=== PATIENT | female | born 1985 | race Caucasian/White ===

== ENCOUNTER 2016-10-15 06:00 | Inpatient (IN) | payer BC ==
[2016-10-15] VITALS (61 sets, daily range): BP systolic 98–146; BP diastolic 52–85
[~2016-10-15] VITALS: Ht 165.1 cm; Wt 80.9 kg
[~2016-10-15 06:00] MED LIST: FERR325C PO; PREN1TAB39 PO
[2016-10-15] MEDS ORDERED: D5 LR IV SOLUTION 1,000 ML IV ONE (06:20)
[2016-10-15] MEDS ORDERED: MINERAL OIL CONCENTRATE 99.9% 15 ML UDC TOP PRN (06:45)
[2016-10-15] MEDS ORDERED: VANCOMYCIN INJECTION 1,000 MG in NS (IVPB) 250 ML IV SCH (06:45)
[2016-10-15] MEDS: D5 LR IV SOLUTION 1,000 ML IV SCH ×2 (06:51→14:41)
[2016-10-15 07:09] LABS: BASOPHILS % (AUTO) 0 % (0-10); EOSINOPHILS # (AUTO) 0.2 10^3/uL (0.0-0.3); EOSINOPHILS % (AUTO) 2 % (0-10); LYMPHOCYTES # (AUTO) 2.3 X 10^3 (1.0-4.0); LYMPHOCYTES % (AUTO) 25 % (12-44); MEAN CORPUSCULAR HEMOGLOBIN 32 PG (25-34); MEAN CORPUSCULAR HGB CONC 34 G/DL (32-36); MEAN CORPUSCULAR VOLUME 94 FL (80-99); MEAN PLATELET VOLUME 12.7 FL (7.4-10.4); MONOCYTES # (AUTO) 0.8 X 10^3 (0.0-1.0); MONOCYTES % (AUTO) 9 % (0-12); NEUTROPHILS # (AUTO) 5.9 X 10^3 (1.8-7.8); NEUTROPHILS % (AUTO) 64 % (42-75); PLATELET COUNT 105 10^3/uL (130-400); RED BLOOD COUNT 3.43 10^6/uL (4.35-5.85); WHITE BLOOD COUNT 9.3 10^3/uL (4.3-11.0)
[2016-10-15] MEDS ORDERED: NS (IVPB) 250 ML ONE (07:22)
[2016-10-15] MEDS ORDERED: MISOPROSTOL 100 MCG (CYTOTEC) TAB PO ONE (07:30)
[2016-10-15 10:26] LABS: BILIRUBIN,URINE NEGATIVE (NEGATIVE); KETONES,URINE NEGATIVE (NEGATIVE); LEUKOCYTE ESTERASE ,URINE 3+ (NEGATIVE); NITRITE,URINE NEGATIVE (NEGATIVE); PH,URINE 7 (5-9); PROTEIN,URINE 1+ (NEGATIVE); UROBILINOGEN,URINE NORMAL (NORMAL)
[2016-10-15 10:50] LABS: WBC,URINE 50-100 /HPF
[2016-10-15] MEDS ORDERED: OXYTOCIN/NORMAL SALINE 500 ML IV SCH ×2 (12:17→16:25)
[2016-10-15] MEDS ORDERED: fentaNYL INJECTION 100 MCG/2 ML AMP IVP PRN (12:30)
[2016-10-15] MEDS ORDERED: PROMETHAZINE INJ 25 MG/ML (PHENERGAN) AMP IVP PRN (12:30)
[2016-10-15] MEDS ORDERED: SUFENTA 0.6MCG/ML BUPIVA 0.125 100 ML ONE (13:19)
[2016-10-15] MEDS ORDERED: CATHETER FLUSH 10 ML SYR IV SCH ×2 (14:00→22:00)
[2016-10-15] MEDS ORDERED: LACTATED RINGERS 1,000 ML IV SCH (14:16)
[2016-10-15] MEDS ORDERED: diphenhydrAMINE 50 MG/ML INJ (BENADRYL) IV PRN (14:30)
[2016-10-15] MEDS ORDERED: EPIDURAL (SUFENTA 0.6MCG/ML BUPIVA 0.125%) 100 ML BAG EPI SCH (14:30)
[2016-10-15] MEDS ORDERED: METOCLOPRAMIDE INJ 10 MG/2 ML (REGLAN) IV PRN (14:30)
[2016-10-15] MEDS ORDERED: NALOXONE 0.4 MG/ML 1 ML (NARCAN) VIAL IV PRN ×2 (14:30)
[2016-10-15] MEDS ORDERED: ONDANSETRON 4 MG/2 ML (SDV) Z0FRAN IV PRN (14:30)
[2016-10-15] MEDS ORDERED: LIDOCAINE PF 2% 10 ML (XYLOCAINE) AMP ONE (14:50)
[2016-10-15] MEDS ORDERED: BUPIVACAINE 0.25% 30 ML (SENSORCAINE) VIAL ONE (15:15)
[2016-10-15] MEDS ORDERED: LIDOCAINE/EPI 1%-1:200,000 (XYLOCAINE) 30 ML VIAL ONE (15:52)
[2016-10-15] MEDS ORDERED: DIBUCAINE (NUPERCAINAL) 1% OINT 30 GM TOP PRN (16:30)
[2016-10-15] MEDS ORDERED: WITCH HAZEL(TUCKS) 40 EA JAR TOP PRN (16:30)
[2016-10-15] MEDS ORDERED: TETANUS,DIPTH,PERTUSS P/F (BOOSTRIX) 0.5 ML VIAL IM ONE (16:30)
[2016-10-15] MEDS ORDERED: MEASLES,MUMPS,RUBELLA 1 EA INJ SQ ONE (16:30)
[2016-10-15] MEDS ORDERED: BENZOCAINE/MENTHOL (DERMOPLAST) 56 ML CAN TP PRN (16:30)
--- NOTE | 2016-10-15 16:30 | OB Labor & Delivery Record ---
Vag Delivery Note Vag Delivery Note Date of Delivery: 10/15/16 Preoperative Diagnosis: Shasta Faust is a 31 /Para 2 /1 ,Gestational Age 39 weeks with gestational thrombocytopenia, GBS+ Postoperative Diagnosis: Same Surgeon: CRICKET GREENE Anesthesia:epidural Delivery Type: Findings: [] Viable female infant, apgars 9/9, weight 7#8oz Lacerations: Intact placenta with 3 vessel cord. No nuchal cord, body cord or shoulder dystocia Estimated Blood Loss:200 ml Complications: None Condition: Stable Description of Procedure: The patient is a 31 /Para 2 /1 ,Gestational Age 39 weeks with gestational thrombocytopenia.. She was admitted and informed consent was obtained. Her labor course was remarkable for Vancomycin administration due to GBS +, PCN allergic and Clindamycin resistance. 4 hours after infusion, AROM and then pitocin. Epidural was placed. She progressed to complete dilatation and began to push. She was then set up for delivery. The infant's head was delivered atraumatically in the KYRA position. The shoulders and remainder of the infant's body were then delivered without difficulty. Upon delivery, the head was held below the level of the perineum and the mouth and nares were bulb suctioned. The cord was doubly clamped and cut after delayed cord clamping and the infant was handed off to the pediatric staff. An intact placenta with 3-vessel cord delivered via Reggie and there was found to be minimal bleeding.~ Vigorous fundal massage was performed and the fundus was found to be firm. IV oxytocin was given. Examination of the vagina and perineum revealed 1st degree laceration repaired in the usual fashion with 3-0 vicryl suture. Following the repair, sponge, instrument and needle counts were correct. Mom and baby were both in stable condition in the labor suite. Vitals - Labs Vital Signs - I&O Vital Signs Date Time Temp Pulse Resp B/P (MAP) Pulse Ox O2 Delivery O2 Flow Rate FiO2 10/15/16 09:00 62 18 98/55 Room Air 10/15/16 08:00 71 18 121/69 Room Air 10/15/16 07:36 99.4 90 18 123/62 Room Air 10/15/16 07:10 97.8 10/15/16 06:34 99 18 116/64 Room Air Labs Laboratory Tests 10/15/16 06:58: White Blood Count 9.3, Red Blood Count 3.43L, Hemoglobin 10.9L, Hematocrit 32L, Mean Corpuscular Volume 94, Mean Corpuscular Hemoglobin 32, Mean Corpuscular Hemoglobin Concent 34, Red Cell Distribution Width 13.0, Platelet Count 105L, Mean Platelet Volume 12.7H, Neutrophils (%) (Auto) 64, Lymphocytes (%) (Auto) 25 , Monocytes (%) (Auto) 9, Eosinophils (%) (Auto) 2, Basophils (%) (Auto) 0, Neutrophils # (Auto) 5.9, Lymphocytes # (Auto) 2.3, Monocytes # (Auto) 0.8, Eosinophils # (Auto) 0.2, Basophils # (Auto) 0.0 10/15/16 10:15: Urine Color YELLOW, Urine Clarity CLEAR, Urine pH 7, Urine Specific [place] 1.010L, Urine Protein 1+H, Urine Glucose (UA) NEGATIVE, Urine Ketones NEGATIVE, Urine Nitrite NEGATIVE, Urine Bilirubin NEGATIVE, Urine Urobilinogen NORMAL, Urine Leukocyte Esterase 3+H, Urine RBC (Auto) 5+H, Urine RBC 0-2, Urine WBC 50- 100H, Urine Squamous Epithelial Cells 10-25H, Urine Crystals NONE, Urine Bacteria MODERATEH, Urine Casts NONE, Urine Mucus NEGATIVE, Urine Culture Indicated YES CRICKET GREENE DO Oct 15, 2016 16:30
[2016-10-15] MEDS: IBUPROFEN 600 MG (MOTRIN) TAB PO SCH (18:12)
[2016-10-15] MEDS: DOCUSATE SODIUM 100 MG (COLACE) CAP PO SCH (20:28)
[2016-10-15] MEDS: HYDROcodone/APAP 5 MG/325 MG (LORTAB) TAB PO PRN (22:25)
[2016-10-15] MEDS ORDERED: FERR-74 PO (23:39)
[2016-10-15] MEDS ORDERED: HYDR-3812 PO (23:39)
[2016-10-15] MEDS ORDERED: IBUP-1773 PO (23:39)
--- NOTE | 2016-10-15 23:41 | Discharge Inst-Women's Service ---
Discharge Inst-Women's Serv Depart Medication/Instructions New, Converted or Re-Newed RX: RX on Chart Final Diagnosis gestational thrombocytopenia term vaginal delivery epidural Consults/Follow Up Additional Follow Up: Yes (6 weeks) Activity Activity: Activity as Tolerated Driving Instructions: You May Drive NO SMOKING: NO SMOKING Nothing Inside Vagina: No Douching, No [place], No Tampons Diet Discharge Diet: No Restrictions Symptoms to Report to : Swelling Increased, Bleeding Excessive, Pain Increased, Fever Over 101 Degrees F, Vaginal Bleeding Increase, Cramps in Feet or Legs, Vaginal Discharge Foul For Any Problems or Questions: Contact Your Physician CRICKET GREENE DO Oct 15, 2016 23:41
[2016-10-16 00:20] VITALS: BP 108/51
[2016-10-16] MEDS: HYDROcodone/APAP 5 MG/325 MG (LORTAB) TAB PO PRN (00:37)
[2016-10-16] MEDS: IBUPROFEN 600 MG (MOTRIN) TAB PO SCH ×4 (00:37→18:01)
[2016-10-16 05:00] VITALS: BP 110/72
[2016-10-16 07:11] LABS: BASOPHILS % (AUTO) 0 % (0-10); EOSINOPHILS # (AUTO) 0.1 10^3/uL (0.0-0.3); EOSINOPHILS % (AUTO) 1 % (0-10); LYMPHOCYTES % (AUTO) 26 % (12-44); MEAN CORPUSCULAR HEMOGLOBIN 32 PG (25-34); MEAN CORPUSCULAR HGB CONC 33 G/DL (32-36); MEAN CORPUSCULAR VOLUME 95 FL (80-99); MEAN PLATELET VOLUME 12.9 FL (7.4-10.4); MONOCYTES % (AUTO) 8 % (0-12); NEUTROPHILS # (AUTO) 7.7 X 10^3 (1.8-7.8); NEUTROPHILS % (AUTO) 65 % (42-75); PLATELET COUNT 97 10^3/uL (130-400); RED BLOOD COUNT 3.22 10^6/uL (4.35-5.85); RED CELL DISTRIBUTION WIDTH 13.3 % (10.0-14.5); WHITE BLOOD COUNT 11.7 10^3/uL (4.3-11.0)
[2016-10-16] MEDS: PRENATAL VITAMIN 1 EA TAB PO SCH (08:56)
[2016-10-16] MEDS: FERROUS SULF 325 MG (IRON) TAB PO SCH (08:56)
[2016-10-16] MEDS: DOCUSATE SODIUM 100 MG (COLACE) CAP PO SCH ×2 (08:57→21:15)
[2016-10-16 09:00] VITALS: BP 109/73
--- NOTE | 2016-10-16 09:04 | Postpartum Progress Note ---
Note Note Day # 1 s/p Subjective: Patient is without complaints. Ambulating, voiding. Tolerating a regular diet without nausea or vomiting. Normal lochia. Pain is well controlled with oral pain medications. breast feeding. Objective: Laboratory Tests Test 10/15/16 10:15 10/16/16 06:29 Range/Units Urine Color YELLOW Urine Clarity CLEAR Urine pH 7 5-9 Urine Specific [place] 1.010 L 1.016-1.022 Urine Protein 1+ H NEGATIVE Urine Glucose (UA) NEGATIVE NEGATIVE Urine Ketones NEGATIVE NEGATIVE Urine Nitrite NEGATIVE NEGATIVE Urine Bilirubin NEGATIVE NEGATIVE Urine Urobilinogen NORMAL NORMAL MG/DL Urine Leukocyte Esterase 3+ H NEGATIVE Urine RBC (Auto) 5+ H NEGATIVE Urine RBC 0-2 /HPF Urine WBC 50-100 H /HPF Urine Squamous Epithelial Cells 10-25 H /HPF Urine Crystals NONE /LPF Urine Bacteria MODERATE H /HPF Urine Casts NONE /LPF Urine Mucus NEGATIVE /LPF Urine Culture Indicated YES White Blood Count 11.7 H 4.3-11.0 10^3/uL Red Blood Count 3.22 L 4.35-5.85 10^6/uL Hemoglobin 10.2 L 11.5-16.0 G/DL Hematocrit 31 L 35-52 % Mean Corpuscular Volume 95 80-99 FL Mean Corpuscular Hemoglobin 32 25-34 PG Mean Corpuscular Hemoglobin Concent 33 32-36 G/DL Red Cell Distribution Width 13.3 10.0-14.5 % Platelet Count 97 L 130-400 10^3/uL Mean Platelet Volume 12.9 H 7.4-10.4 FL Neutrophils (%) (Auto) 65 42-75 % Lymphocytes (%) (Auto) 26 12-44 % Monocytes (%) (Auto) 8 0-12 % Eosinophils (%) (Auto) 1 0-10 % Basophils (%) (Auto) 0 0-10 % Neutrophils # (Auto) 7.7 1.8-7.8 X 10^3 Lymphocytes # (Auto) 3.0 1.0-4.0 X 10^3 Monocytes # (Auto) 1.0 0.0-1.0 X 10^3 Eosinophils # (Auto) 0.1 0.0-0.3 10^3/uL Basophils # (Auto) 0.0 0.0-0.1 10^3/uL Vital Sign - Last 12Hours 10/16/16 10/16/16 00:20 05:00 Temp 97.0 98.2 Pulse 55 74 Resp 19 18 B/P (MAP) 108/51 110/72 Pulse Ox 98 98 O2 Delivery Room Air Room Air Intake and Output 10/16/16 00:00 Intake Total 1700 ml Balance 1700 ml Physical Exam: General - Alert and oriented, no apparent distress Abdomen - Soft, appropriately tender to palpation, non-distended, fundus firm at umbilicus Extremities - no edema, negative Prince's bilaterally Assessment: 1. post- day # 1, status post spontaneous vaginal delivery. Recovering well, hemodynamically stable 2. Mild Acute blood loss anemia - stable, iron replaced 3. gestational thrombocytopenia. Plt count sl decrease. Will repeat in the am. No excess bleeding or petechiae Plan: Routine care. Encourage breast feeding. Encourage ambulation. Ferrous sulfate supplementation. Plan for discharge tomorrow Vitals - Labs Vital Signs - I&O Vital Signs Date Time Temp Pulse Resp B/P (MAP) Pulse Ox O2 Delivery O2 Flow Rate FiO2 10/16/16 05:00 98.2 74 18 110/72 98 Room Air 10/16/16 00:20 97.0 55 19 108/51 98 Room Air 10/15/16 20:20 96.8 68 18 113/67 95 Room Air 10/15/16 18:19 70 18 123/64 Room Air 10/15/16 17:29 99.4 65 18 123/58 Room Air 10/15/16 16:59 62 18 121/57 Room Air 10/15/16 16:44 62 18 126/60 Room Air 10/15/16 16:28 77 18 136/58 Room Air 10/15/16 16:22 87 18 121/66 Room Air 10/15/16 16:18 76 18 124/64 Room Air 10/15/16 16:16 65 18 114/58 Room Air 10/15/16 16:13 66 18 119/61 Room Air 10/15/16 16:03 77 18 123/59 Room Air 10/15/16 16:00 79 18 111/52 Room Air 10/15/16 15:50 77 18 109/59 Room Air 10/15/16 15:47 64 18 128/58 98 Room Air 10/15/16 15:40 62 18 121/68 99 Room Air 10/15/16 15:37 64 18 111/57 98 Room Air 10/15/16 15:34 67 18 119/56 Room Air 10/15/16 15:29 61 18 120/61 Room Air 10/15/16 15:27 65 18 98/56 99 Room Air 10/15/16 15:23 96 18 113/63 99 Room Air 10/15/16 15:20 77 18 146/60 Room Air 10/15/16 15:17 78 18 134/71 98 Room Air 10/15/16 15:14 75 18 121/62 Room Air 10/15/16 15:12 71 18 135/63 99 Room Air 10/15/16 15:05 67 18 124/60 Room Air 10/15/16 15:03 63 18 125/59 Room Air 10/15/16 14:59 71 18 134/74 Room Air 10/15/16 14:56 67 18 128/78 Room Air 10/15/16 14:53 73 18 122/61 Room Air 10/15/16 14:50 61 18 117/58 Room Air 10/15/16 14:46 70 18 129/60 98 Room Air 10/15/16 14:40 67 18 112/57 98 Room Air 10/15/16 14:38 73 18 128/71 98 Room Air 10/15/16 14:35 64 18 126/72 98 Room Air 10/15/16 14:32 80 18 131/71 98 Room Air 10/15/16 14:28 60 18 145/64 97 Room Air 10/15/16 14:26 65 18 118/60 97 Room Air 10/15/16 14:23 77 18 132/76 98 Room Air 10/15/16 14:20 70 18 122/68 98 Room Air 10/15/16 14:18 69 18 126/66 98 Room Air 10/15/16 14:15 72 18 130/74 99 Room Air 10/15/16 14:08 69 18 131/74 100 Room Air 10/15/16 14:03 56 18 122/71 99 Room Air 10/15/16 14:00 74 18 128/81 99 Room Air 10/15/16 13:57 68 18 130/80 98 Room Air 10/15/16 13:53 78 18 131/72 98 Room Air 10/15/16 13:48 72 18 133/76 Room Air 10/15/16 13:45 99.5 64 18 130/70 Room Air 10/15/16 13:32 64 18 130/58 Room Air 10/15/16 13:15 73 18 125/84 Room Air 10/15/16 13:00 69 18 129/85 Room Air 10/15/16 12:45 99.4 10/15/16 12:30 68 18 123/70 Room Air 10/15/16 12:00 99.3 10/15/16 11:30 74 18 110/67 Room Air 10/15/16 11:01 99.8 72 18 109/64 Room Air 10/15/16 10:30 68 18 119/60 Room Air 10/15/16 10:00 70 18 111/73 Room Air 10/15/16 09:30 75 18 105/53 Room Air I & O 10/16/16 07:00 Intake Total 1950 ml Balance 1950 ml Labs Laboratory Tests 10/15/16 10:15: Urine Color YELLOW, Urine Clarity CLEAR, Urine pH 7, Urine Specific [place] 1.010L, Urine Protein 1+H, Urine Glucose (UA) NEGATIVE, Urine Ketones NEGATIVE, Urine Nitrite NEGATIVE, Urine Bilirubin NEGATIVE, Urine Urobilinogen NORMAL, Urine Leukocyte Esterase 3+H, Urine RBC (Auto) 5+H, Urine RBC 0-2, Urine WBC 50- 100H, Urine Squamous Epithelial Cells 10-25H, Urine Crystals NONE, Urine Bacteria MODERATEH, Urine Casts NONE, Urine Mucus NEGATIVE, Urine Culture Indicated YES 10/16/16 06:29: White Blood Count 11.7H, Red Blood Count 3.22L, Hemoglobin 10.2L, Hematocrit 31L , Mean Corpuscular Volume 95, Mean Corpuscular Hemoglobin 32, Mean Corpuscular Hemoglobin Concent 33, Red Cell Distribution Width 13.3, Platelet Count 97L, Mean Platelet Volume 12.9H, Neutrophils (%) (Auto) 65, Lymphocytes (%) (Auto) 26 , Monocytes (%) (Auto) 8, Eosinophils (%) (Auto) 1, Basophils (%) (Auto) 0, Neutrophils # (Auto) 7.7, Lymphocytes # (Auto) 3.0, Monocytes # (Auto) 1.0, Eosinophils # (Auto) 0.1, Basophils # (Auto) 0.0 CRICKET GREENE DO Oct 16, 2016 09:03
--- NOTE | 2016-10-16 17:40 | Anesthesia-Regional Post-Op ---
Regional Patient Condition Mental Status: Alert, Oriented x3 Circulation: Same as Pre-Op Headache: Absent Sensation: Full Recovery Motor Block: Absent Post Op Complications Complications None Follow Up Care/Instructions Patient Instructions None needed. Anesthesia/Patient Condition Patient is doing well, no complaints, stable vital signs, no apparent adverse anesthesia problems. No complications reported per nursing. SABINO DELACRUZ CRNA Oct 16, 2016 17:40
[2016-10-16 17:58] VITALS: BP 115/75
[2016-10-17] MEDS: IBUPROFEN 600 MG (MOTRIN) TAB PO SCH ×3 (00:08→13:02)
[2016-10-17 00:10] VITALS: BP 107/65
[2016-10-17] MEDS ORDERED: TROUGH ORDER-PHARMACY XX NR (06:00)
[2016-10-17 06:46] LABS: BASOPHILS % (AUTO) 1 % (0-10); EOSINOPHILS # (AUTO) 0.1 10^3/uL (0.0-0.3); EOSINOPHILS % (AUTO) 2 % (0-10); LYMPHOCYTES # (AUTO) 2.6 X 10^3 (1.0-4.0); LYMPHOCYTES % (AUTO) 33 % (12-44); MEAN CORPUSCULAR HEMOGLOBIN 32 PG (25-34); MEAN CORPUSCULAR HGB CONC 33 G/DL (32-36); MEAN CORPUSCULAR VOLUME 96 FL (80-99); MEAN PLATELET VOLUME 12.7 FL (7.4-10.4); MONOCYTES # (AUTO) 0.6 X 10^3 (0.0-1.0); MONOCYTES % (AUTO) 8 % (0-12); NEUTROPHILS # (AUTO) 4.6 X 10^3 (1.8-7.8); NEUTROPHILS % (AUTO) 58 % (42-75); PLATELET COUNT 109 10^3/uL (130-400); RED BLOOD COUNT 3.24 10^6/uL (4.35-5.85); RED CELL DISTRIBUTION WIDTH 13.2 % (10.0-14.5)
[2016-10-17 06:50] VITALS: BP 94/57
[2016-10-17 08:20] VITALS: BP 112/61
[2016-10-17] MEDS: FERROUS SULF 325 MG (IRON) TAB PO SCH (08:20)
[2016-10-17] MEDS: DOCUSATE SODIUM 100 MG (COLACE) CAP PO SCH (08:20)
[2016-10-17] MEDS: PRENATAL VITAMIN 1 EA TAB PO SCH (08:20)
--- NOTE | 2016-10-17 09:14 | Progress Note-Standard ---
Standard Progress Note Progress Notes/Assess & Plan Progress/Assessment & Plan patient without complaint. She is ambulating, voiding, tolerating by mouth, has good pain control. Patient is requesting discharge home. Patient denies chest pain, denies shortness breath, denies nausea vomiting, denies headache. Vital Signs Date Time Temp Pulse Resp B/P (MAP) Pulse Ox O2 Delivery O2 Flow Rate FiO2 10/17/16 08:20 97.7 70 16 112/61 Room Air 10/17/16 06:50 98.7 70 18 94/57 98 Room Air 10/17/16 00:10 98.5 65 18 107/65 97 Room Air 10/16/16 17:58 99.7 70 18 115/75 97 Room Air vital signs are stable. Patient is afebrile. Fundus is firm below the umbilicus and nontender. Extreme show clubbing cyanosis. There is no Homans sign. There is some pretibial pitting edema that is normal. Assessment and plan status post term spontaneous vaginal delivery. day number 2. Patient will be discharged home with follow-up in clinic. Final Diagnosis SANJUANA CABRERA MD Oct 17, 2016 9:14 am
--- OUTSIDE RECORDS SUMMARY | 2016-11-07 07:44 | XMS REPORT | Continuity of Care Document ---
Author Author [facility] Organization [facility] Address Unknown Phone Unavailable Allergies Active Description Code Type Severity Reaction Onset Reported/Identified Relationship to Patient Clinical Status Yes Penicillins [id number] Drug Allergy Mild N/A 08/30/2011 Yes Sulfa (Sulfonamide Antibiotics) [id number] Drug Allergy Mild N/A 08/30/2011 Medications Problems Date Dx Coded Attending Type Code Diagnosis Diagnosed By 09/02/2011 Ot 287.5 THROMBOCYTOPENIA NOS 09/02/2011 Ot 649.31 COAGULATION DEFECTS COMP PREG/CHILDBIRTH 09/02/2011 Ot 659.71 ABN DEL FET HT RT/RHYTHM,W OR W/O MENTIO 09/02/2011 Ot V06.1 [id number], COMBINED [ 09/02/2011 Ot V27.0 DELIVER-SINGLE LIVEBORN 05/03/2014 V04.81 FLU SHOT 04/01/2015 HELEN LR, RENATE Cox Ot 959.7 09/16/2016 HELEN LR, RENATE Cox Ot 959.7 LOWER LEG INJURY NOS 10/17/2016 CRICKET GREENE DO Ot O46.003 ANTEPARTUM HEMORRHAGE W COAG DEFECT, UNS 10/17/2016 CRICKET GREENE DO Ot O70.0 FIRST DEGREE PERINEAL LACERATION DURING 10/17/2016 CRICKET GREENE DO Ot O99.824 STREPTOCOCCUS B CARRIER STATE COMPLICATI 10/17/2016 CRICKET GREENE DO Ot Z37.0 SINGLE LIVE 10/17/2016 CRICKET GREENE DO Ot Z3A.39 39 WEEKS GESTATION OF Procedures Code Description Performed By Performed On 73.4 MEDICAL INDUCTION LABOR 08/30/2011 72.71 VACUUM EXT DEL W EPISIOT 08/31/2011 [id number] REPAIR PERINEUM SKIN, EXTERNAL APPROACH 10/15/2016 [id number] DELIVERY OF PRODUCTS OF CONCEPTION, EXTE 10/15/2016 Results Test Result Range Complete blood count (CBC) with automated white blood cell (WBC) differential - 10/15/16 06:58 Blood leukocytes automated count (number/volume) 9.3 10*3/ uL 4.3-11.0 Blood erythrocytes automated count (number/volume) 3.43 10*6 /uL 4.35-5.85 Venous blood hemoglobin measurement (mass/volume) 10.9 g/dL 11.5-16.0 Blood hematocrit (volume fraction) 32 % 35-52 Automated erythrocyte mean corpuscular volume 94 [foz_us] 80-99 Automated erythrocyte mean corpuscular hemoglobin (mass per erythrocyte) 32 pg 25-34 Automated erythrocyte mean corpuscular hemoglobin concentration measurement ( mass/volume) 34 g/dL 32-36 Automated erythrocyte distribution width ratio 13.0 % 10.0-14.5 Automated blood platelet count (count/volume) 105 10*3/uL 130-400 Automated blood platelet mean volume measurement 12.7 [foz_ us] 7.4-10.4 Automated blood neutrophils/100 leukocytes 64 % 42-75 Automated blood lymphocytes/100 leukocytes 25 % 12-44 Blood monocytes/100 leukocytes 9 % 0-12 Automated blood eosinophils/100 leukocytes 2 % 0-10 Automated blood basophils/100 leukocytes 0 % 0-10 Blood neutrophils automated count (number/volume) 5.9 10*3 1.8-7.8 Blood lymphocytes automated count (number/volume) 2.3 10*3 1.0-4.0 Blood monocytes automated count (number/volume) 0.8 10*3 0.0-1.0 Automated eosinophil count 0.2 10*3/uL 0.0-0.3 Automated blood basophil count (count/volume) 0.0 10*3/uL 0.0-0.1 Blood type T Indirect antibody screen panel - 10/15/16 06:58 ABO+Rh group AP NRG Transfusion band number [id number] Blood group antibody screen NEGATIVE NR Complete urinalysis with reflex to culture - 10/15/16 10:15 Urine color determination YELLOW NRG Urine clarity determination CLEAR NRG Urine pH measurement by test strip 7 5- 9 Specific gravity of urine by test strip 1.010 1.016-1.022 Urine protein assay by test strip, semi-quantitative 1+ NEGATIVE Urine glucose detection by automated test strip NEGATIVE NEGATIVE Erythrocytes detection in urine sediment by light microscopy 5+ NEGATIVE Urine ketones detection by automated test strip NEGATIVE NEGATIVE Urine nitrite detection by test strip NEGATIVE NEGATIVE Urine total bilirubin detection by test strip NEGATIVE NEGATIVE Urine urobilinogen measurement by automated test strip (mass/volume) NORMAL NORMAL Urine leukocyte esterase detection by dipstick 3+ NEGATIVE Automated urine sediment erythrocyte count by microscopy (number/high power field) [HPF] NRG Automated urine sediment leukocyte count by microscopy (number/high power field ) [HPF] NRG Bacteria detection in urine sediment by light microscopy MODERATE NRG Squamous epithelial cells detection in urine sediment by light microscopy 10-25 NRG Crystals detection in urine sediment by light microscopy NONE NRG Casts detection in urine sediment by light microscopy NONE NRG Mucus detection in urine sediment by light microscopy NEGATIVE NRG Complete urinalysis with reflex to culture YES NRG Bacterial urine culture - 10/15/16 10:15 URINE CULTURE RESULTS <10,000/ML NRG Complete blood count (CBC) with automated white blood cell (WBC) differential - 10/16/16 06:29 Blood leukocytes automated count (number/volume) 11.7 10*3/ uL 4.3-11.0 Blood erythrocytes automated count (number/volume) 3.22 10*6 /uL 4.35-5.85 Venous blood hemoglobin measurement (mass/volume) 10.2 g/dL 11.5-16.0 Blood hematocrit (volume fraction) 31 % 35-52 Automated erythrocyte mean corpuscular volume 95 [foz_us] 80-99 Automated erythrocyte mean corpuscular hemoglobin (mass per erythrocyte) 32 pg 25-34 Automated erythrocyte mean corpuscular hemoglobin concentration measurement ( mass/volume) 33 g/dL 32-36 Automated erythrocyte distribution width ratio 13.3 % 10.0-14.5 Automated blood platelet count (count/volume) 97 10*3/uL 130-400 Automated blood platelet mean volume measurement 12.9 [foz_ us] 7.4-10.4 Automated blood neutrophils/100 leukocytes 65 % 42-75 Automated blood lymphocytes/100 leukocytes 26 % 12-44 Blood monocytes/100 leukocytes 8 % 0-12 Automated blood eosinophils/100 leukocytes 1 % 0-10 Automated blood basophils/100 leukocytes 0 % 0-10 Blood neutrophils automated count (number/volume) 7.7 10*3 1.8-7.8 Blood lymphocytes automated count (number/volume) 3.0 10*3 1.0-4.0 Blood monocytes automated count (number/volume) 1.0 10*3 0.0-1.0 Automated eosinophil count 0.1 10*3/uL 0.0-0.3 Automated blood basophil count (count/volume) 0.0 10*3/uL 0.0-0.1 Complete blood count (CBC) with automated white blood cell (WBC) differential - 10/17/16 06:25 Blood leukocytes automated count (number/volume) 8.0 10*3/ uL 4.3-11.0 Blood erythrocytes automated count (number/volume) 3.24 10*6 /uL 4.35-5.85 Venous blood hemoglobin measurement (mass/volume) 10.3 g/dL 11.5-16.0 Blood hematocrit (volume fraction) 31 % 35-52 Automated erythrocyte mean corpuscular volume 96 [foz_us] 80-99 Automated erythrocyte mean corpuscular hemoglobin (mass per erythrocyte) 32 pg 25-34 Automated erythrocyte mean corpuscular hemoglobin concentration measurement ( mass/volume) 33 g/dL 32-36 Automated erythrocyte distribution width ratio 13.2 % 10.0-14.5 Automated blood platelet count (count/volume) 109 10*3/uL 130-400 Automated blood platelet mean volume measurement 12.7 [foz_ us] 7.4-10.4 Automated blood neutrophils/100 leukocytes 58 % 42-75 Automated blood lymphocytes/100 leukocytes 33 % 12-44 Blood monocytes/100 leukocytes 8 % 0-12 Automated blood eosinophils/100 leukocytes 2 % 0-10 Automated blood basophils/100 leukocytes 1 % 0-10 Blood neutrophils automated count (number/volume) 4.6 10*3 1.8-7.8 Blood lymphocytes automated count (number/volume) 2.6 10*3 1.0-4.0 Blood monocytes automated count (number/volume) 0.6 10*3 0.0-1.0 Automated eosinophil count 0.1 10*3/uL 0.0-0.3 Automated blood basophil count (count/volume) 0.0 10*3/uL 0.0-0.1 Vancomycin trough - 10/17/16 06:25 Vancomycin trough < ug/mL 10.0-20.0 Encounters ACCT No. Visit Date/Time Discharge Status Pt. Type Provider Facility Loc./Unit Complaint [id number] 10/15/2016 06:27:00 2016 14:20:00 DIS Outpatient CRICKET GREENE DO [facility] LDRP GESTATIONAL THROMBACYTOPENIA; GBS; INDUCTION [id number] 11/07/2013 15:11:00 2013 23:59:59 CLS Outpatient HELEN LR, RENATE Cox [facility] RAD INJ LT KNEE [id number] 10/22/2016 15:40:00 PEN Preadmit CRICKET GREENE DO [id number] 08/30/2011 20:31:00 Document Registration
== END 2016-10-17 14:20 | disposition home or self-care (01) | DRG 774 ==
LOC: DELPENDDIS → LDRP 06:27
PROVIDERS: ADMIT Obstetrics & Gynecology; ATTEND Obstetrics & Gynecology
PROC: 10E0XZZ Delivery of Products of Conception, External Approach (ICD-10-PCS; principal; 2016-10-15)
PROC: 0HQ9XZZ Repair Perineum Skin, External Approach (ICD-10-PCS; 2016-10-15)
DX: O70.0 First degree perineal laceration during delivery (principal); O46.003 Antepartum hemorrhage with coagulation defect, unspecified, third trimester; O99.824 Streptococcus B carrier state complicating childbirth; Z37.0 Single live birth; Z3A.39 39 weeks gestation of pregnancy
CPT/HCPCS: 36415; 80202; 81000; 85025; 86850; 86900; 86901; 87088

== ENCOUNTER → 2021-08-11 | Outpatient (CLI) | payer BC ==
[~2021-08-11] MED LIST changes: +ACHD5005 PO; +FERR325T18 PO; +IBUP-1773 PO
--- NOTE | 2021-08-11 14:21 | Diagnostic Imaging Report ---
INDICATION: Palpable lump in the left breast. CORRELATION is made with a diagnostic mammogram performed earlier this same day. Sonographic interrogation of the area of palpable abnormality in the left breast was performed. There is a circumscribed ovoid hypoechoic mass at the 12:00 location, 2 cm from the nipple measuring 1.4 x 0.4 x 1.1 cm. No internal vascularity is seen. No posterior acoustic shadowing is seen. This has the appearance of a fibroadenoma. There is a 2nd rounded, circumscribed hypoechoic nodule at the 12:00 location, 4 cm from the nipple measuring 0.6 x 0.5 x 0.8 cm. This has some vascularity along the margins. No posterior acoustic shadowing is seen. This too may represent a 2nd smaller fibroadenoma. This likely accounts for the rounded density in the retroareolar left breast on mammography. IMPRESSION: BI-RADS Category 3 There are 2 circumscribed hypoechoic nodules at the 12:00 location 2 and 4 cm from the nipple, likely accounting for the palpable and mammographic findings and most likely representing fibroadenomas. Even so, follow-up left breast ultrasound in 6 months is recommended to show continued stability. ACR BI-RADS Category 3: Probably benign findings. Result letter will be mailed to the patient. Note: At least 10% of breast cancer is not imaged by mammography. Dictated by: Dictated on workstation # [id number]
--- NOTE | 2021-08-11 14:31 | Diagnostic Imaging Report ---
INDICATION: Palpable lump left breast. No prior studies are available for comparison. Unilateral left 2-D and 3-D diagnostic mammography was performed with CAD. Left breast is heterogeneously dense, limiting the sensitivity of mammography. BB marker was placed at the area of palpable abnormality in the upper left breast. There is a circumscribed nodule in the retroareolar left breast upper outer aspect. No other masses are seen. No suspicious microcalcifications are identified. Axilla is unremarkable. IMPRESSION: BI-RADS 0 Circumscribed nodule in the retroareolar upper outer left breast. Directed sonographic interrogation of this area is recommended. In addition, sonographic interrogation of the upper left breast at the area of palpable abnormality is recommended. Ultrasound will be performed today. ACR BI-RADS Category 0: Incomplete. (Needs additional imaging evaluation). Result letter will be mailed to the patient. Note: At least 10% of breast cancer is not imaged by mammography. Dictated by: Dictated on workstation # [id number]
== END ==
LOC: RAD 12:30
PROVIDERS: ATTEND Obstetrics & Gynecology
DX: N63.20 Unspecified lump in the left breast, unspecified quadrant (principal)
CPT/HCPCS: 76642; 77065; G0279

== ENCOUNTER → 2022-02-02 | Outpatient (CLI) | payer BC ==
--- NOTE | 2022-02-02 14:51 | Diagnostic Imaging Report ---
INDICATION: Left breast nodules. COMPARISON: Correlation is made with the left breast ultrasound from 08/11/2021. FINDINGS: The previous ultrasound did demonstrate two hypoechoic nodules at the 12 o'clock location of the left breast at 2 and 4 cm from the nipple. The nodule noted at the 12 o'clock location 2 cm from the nipple is no longer visualized. The hypoechoic solid nodule at the 12 o'clock location 4 cm from the nipple is again noted measuring 0.9 x 0.5 x 0.8 cm, stable when compared to the prior exam. No new mass is detected. IMPRESSION: 1. The previously noted nodule at the 12 o'clock location 2 cm from the nipple is no longer visualized. 2. Stable nodule at the 12 o'clock location 4 cm from the nipple. Continued 6 month ultrasound followup is recommended to show continued stability. ACR BI-RADS Category 3: Probably benign findings. Dictated by: Dictated on workstation # [id number]
== END ==
LOC: RAD 12:30
PROVIDERS: ATTEND Obstetrics & Gynecology
DX: N63.25 Unspecified lump in the left breast, overlapping quadrants (principal)
CPT/HCPCS: 76642

== ENCOUNTER → 2022-09-10 | Outpatient (CLI) | payer BC ==
--- NOTE | 2022-09-10 11:49 | Diagnostic Imaging Report ---
INDICATION: Six-month followup left breast nodule. Correlation is made with prior left breast ultrasound from 02/02/2022. Sonographic interrogation at the 12 o'clock location left breast again demonstrates hypoechoic nodule measuring 9 mm x 5 mm x 8 mm. This is stable compared prior exam and remains most suggestive of a fibroadenoma. This shows one year of stability. No other masses are seen. IMPRESSION: Stable solid nodule 12 o'clock location left breast. Additional six-month sonographic followup is recommended to show continued stability. ACR BI-RADS Category 3: Probably benign findings. Result letter will be mailed to the patient. Note: At least 10% of breast cancer is not imaged by mammography. Dictated by: Dictated on workstation # [id number]
== END ==
LOC: RAD 09:02
PROVIDERS: ATTEND Nurse Practitioner Women's Health
DX: N63.25 Unspecified lump in the left breast, overlapping quadrants (principal)

== ENCOUNTER → 2023-02-17 | Outpatient (CLI) | payer BC ==
--- NOTE | 2023-02-17 13:58 | Diagnostic Imaging Report ---
INDICATION: Left breast nodule. Patient presents for six-month followup. Correlation is made with prior ultrasound from 09/10/2022. Sonographic interrogation 12:00 location left breast was performed. Previously noted hypoechoic solid nodule is stable measuring 7 x 7 x 5 mm. No new mass is identified. This now shows 18 months of stability. IMPRESSION: Stable circumscribed solid nodule 12:00 location left breast. This now shows 18 months of stability. One final six-month followup ultrasound would be recommended to show 24 months of stability. ACR BI-RADS Category 3: Probably benign findings. Result letter will be mailed to the patient. Note: At least 10% of breast cancer is not imaged by mammography. BI-RADS Category 3 Dictated by: Dictated on workstation # [id number]
== END ==
LOC: RAD 12:26
PROVIDERS: ATTEND Nurse Practitioner Women's Health
DX: Z01.419 Encounter for gynecological examination (general) (routine) without abnormal findings (principal); N63.20 Unspecified lump in the left breast, unspecified quadrant